=== PATIENT | female | born 1980 ===

== ENCOUNTER 2018-09-09 08:00 | Inpatient (IN) | payer OTHER ==
[~2018-09-09] VITALS: Ht 152.4 cm; Wt 74.8 kg
[2018-09-09] MEDS ORDERED: TOPROL XL25 M1 PO (10:10)
[2018-09-09] MEDS ORDERED: ZOLOFT100 MG PO (10:10)
[2018-09-09] MEDS ORDERED: CLONAZEPAM0.5 MG PO (10:10)
== END 2018-09-15 13:43 | disposition home or self-care (01) | DRG 621 ==
LOC: O/R 09-14 05:51 → RECOVERY 09-14 07:00 → SURH 09-14 15:54
PROVIDERS: ADMIT Plastic Surgery
PROC: 0J083ZZ Alteration of Abdomen Subcutaneous Tissue and Fascia, Percutaneous Approach (ICD-10-PCS; 2018-09-14)
PROC: 0JX90ZZ Transfer Buttock Subcutaneous Tissue and Fascia, Open Approach (ICD-10-PCS; 2018-09-14)
PROC: 0W0F0ZZ Alteration of Abdominal Wall, Open Approach (ICD-10-PCS; principal; 2018-09-14 07:00)
DX: E65 Localized adiposity (principal); M62.08 Separation of muscle (nontraumatic), other site; E88.1 Lipodystrophy, not elsewhere classified